=== PATIENT | male | born 1950 | race Caucasian/White ===

== ENCOUNTER 2025-02-15 20:57 | Emergency (ER) | payer BC ==
[~2025-02-15] VITALS: Ht 170.2 cm; Wt 83.0 kg
[2025-02-15 21:34] VITALS: TEMP 37.1; O2SAT 98
[2025-02-15] MEDS: AMOXICILLIN/POTASSIUM CLAVULANATE 875/125MG TAB PO ONE (22:58)
[2025-02-15] MEDS: IBUPROFEN 600MG TABLET PO ONE (22:58)
[2025-02-15] MEDS: LIDOCAINE HCL/PF 1% 10 MG/ML 5ML VIAL INFIL ONE (22:58)
[2025-02-15] MEDS: BACITRACIN ZINC OINT UDPKT TOP ONE (22:58)
[2025-02-16] MEDS ORDERED: BO1 TP (01:29)
[2025-02-16] MEDS ORDERED: AMOX1TAB16 MT (01:29)
[2025-02-16 01:49] VITALS: BP 140/66; PULSE 57; RESP 15; O2SAT 100
== END 2025-02-16 01:58 | disposition home or self-care (01) ==
LOC: ER 20:57
DX: S61.412A Laceration without foreign body of left hand, initial encounter (principal); S61.452A Open bite of left hand, initial encounter; Z79.899 Other long term (current) drug therapy; W54.0XXA Bitten by dog, initial encounter; Y93.89 Activity, other specified; Y92.89 Other specified places as the place of occurrence of the external cause; Y99.8 Other external cause status
CPT/HCPCS: 99284; 73130; 12001; J2003

== ENCOUNTER 2025-02-18 10:25 | Emergency (ER) | payer BC ==
[~2025-02-18] VITALS: Ht 170.2 cm; Wt 82.0 kg
[~2025-02-18 10:25] MED LIST: AMOX1TAB16 MT; BO1 TP
[2025-02-18 10:44] VITALS: O2SAT 100
[2025-02-18] MEDS ORDERED: DOXY100T2 MT (11:25)
[2025-02-18] MEDS ORDERED: IBUP-2030 MT (11:26)
[2025-02-18 11:30] VITALS: BP 118/69; PULSE 77; RESP 17; TEMP 36.9; O2SAT 100
[2025-02-18] MEDS: TETANUS, DIPHTHERIA, PERTUSSIS VAC/PF 0.5ML (>10YR OLD) IM ONE (11:42)
== END 2025-02-18 11:43 | disposition home or self-care (01) ==
LOC: ER 10:25
DX: T14.8XXA Other injury of unspecified body region, initial encounter (principal); I10 Essential (primary) hypertension; W54.0XXA Bitten by dog, initial encounter; Y93.89 Activity, other specified; Y92.89 Other specified places as the place of occurrence of the external cause; Y99.8 Other external cause status
CPT/HCPCS: 90471; 90715; 99283

== ENCOUNTER 2025-02-20 12:24 | Emergency (ER) | payer BC ==
[~2025-02-20] VITALS: Ht 167.6 cm; Wt 75.0 kg
[~2025-02-20 12:24] MED LIST changes: +DOXY100T2 MT; +IBUP-2030 MT
[2025-02-20 12:32] VITALS: O2SAT 99
[2025-02-20 12:37] VITALS: BP 110/78; PULSE 80; RESP 18; TEMP 36.9; O2SAT 96
[2025-02-20] MEDS ORDERED: P20 MT (14:40)
[2025-02-20] MEDS: ACETAMINOPHEN 325MG TABLET PO ONE (15:00)
== END 2025-02-20 15:02 | disposition home or self-care (01) ==
LOC: ER 12:24
DX: S61.012D Laceration without foreign body of left thumb without damage to nail, subsequent encounter (principal); I10 Essential (primary) hypertension; Z79.899 Other long term (current) drug therapy; W54.0XXD Bitten by dog, subsequent encounter
CPT/HCPCS: 99282; 99283

== ENCOUNTER 2025-02-25 09:10 | Emergency (ER) | payer BC ==
[~2025-02-25] VITALS: Ht 170.2 cm; Wt 81.0 kg
[~2025-02-25 09:10] MED LIST changes: +P20 MT
[2025-02-25 09:31] VITALS: TEMP 36.7; O2SAT 98
[2025-02-25 10:08] VITALS: BP 115/69; PULSE 68; RESP 16; O2SAT 99
== END 2025-02-25 10:14 | disposition home or self-care (01) ==
LOC: ER 09:10
DX: S61.412D Laceration without foreign body of left hand, subsequent encounter (principal); I10 Essential (primary) hypertension; Z79.899 Other long term (current) drug therapy; X58.XXXD Exposure to other specified factors, subsequent encounter
CPT/HCPCS: 99281